=== PATIENT | female | born 1980 | race Caucasian/White ===

== ENCOUNTER 2017-09-29 22:56 | Observation (INO) | payer BC ==
[2017-09-29 23:22] LABS: #Basophils 0.1 thou/uL (0.0-0.2); #Eosinphils 0.2 thou/uL (0.0-0.7); #Lymphocytes 2.5 thou/uL (1.20-3.40); #Monocytes 1.1 thou/uL (0.11-0.59); #Neutrophils 9.9 thou/uL (1.40-6.50); %Basophils 0.7 % (0.0-1.0); %Eosinophils 1.7 % (0.0-10.0); %Lymphocytes 18.1 % (21.0-51.0); %Neutrophils 71.6 % (42.0-75.0); Hemoglobin 12.9 g/dL (12.0-16.0); Mean Corpuscular HGB CONC 34.2 g/dL (32.0-36.0); Mean Corpuscular Hemoglobin 33.1 pg (27.0-31.0); Mean Corpuscular Volume 96.7 fl (81.0-99.0); Mean Platelet Volume 7.3 fL (7.4-10.4); Platelet Count 266 thou/uL (130-400); RBC Distribution Width 11.7 % (11.5-14.5); White Blood Cell (WBC) Count 13.9 thou/uL (4.8-10.8)
[2017-09-29 23:27] LABS: Bilirubin Negative (Negative); Blood, Urine Negative (Negative); Clarity TURBID (Clear); Glucose, Urine (Dipstick) Negative (Negative); Leukocyte Negative (Negative); Nitrite Negative (Negative); Protein, Urine (Dipstick) Trace mg/dL (Neg-Trace); Specific Gravity, Urine 1.022 (1.002-1.036); pH, Urine 7.5 (5.0-9.0)
[2017-09-29 23:29] LABS: BHCG - Serum Negative (NEGATIVE); Pregs Control Background? CLEAR/WHITE (CLR/WHITE); Pregs Control Bar Appear? YES (CONTROL BAR)
[2017-09-29 23:41] LABS: ALT (SGPT) 57 U/L (8-55); AST (SGOT) 104 U/L (5-34); Albumin 4.2 g/dL (3.5-5.0); Alkaline Phosphatase 75 U/L (40-150); Anion Gap 13 mmol/L (10-20); BUN (Urea Nitrogen) 12 mg/dL (7.0-18.7); Bilirubin, Total 0.3 mg/dL (0.2-1.2); Calc. Creatinine Clearance 0 mL/min (70-130); Calcium 9.6 mg/dL (7.8-10.44); Carbon Dioxide 24 mmol/L (22-29); Chloride 104 mmol/L (98-107); Estimated GFR-MDRD 83; Glucose 135 mg/dL (70-105); Lipase 37 U/L (8-78); Potassium 3.5 mmol/L (3.5-5.1); Protein, Total 7.2 g/dL (6.0-8.3); Sodium 137 mmol/L (136-145)
[2017-09-30] MEDS ORDERED: Meropenem 1 GM in Sterile Water 20 ML SLOW IVP SCH (01:45)
[2017-09-30] MEDS ORDERED: Ketorolac Tromethamine 30 MG/ML VIAL ONE ×2 (02:03→08:40)
[2017-09-30] MEDS ORDERED: Ondansetron HCl/PF 4 MG/2 ML Vial ONE ×4 (02:15→15:35)
[2017-09-30] MEDS ORDERED: Morphine 5 MG/ML SYRINGE IVP PRN (02:55)
[2017-09-30] MEDS ORDERED: traMADol HCl 50 MG TAB PO PRN (02:55)
[2017-09-30] MEDS ORDERED: Dextrose 5% in Water 1,000 ML IV PRN (02:55)
[2017-09-30] MEDS ORDERED: Ondansetron HCl/PF 4 MG/2 ML Vial IVP PRN ×2 (02:55→09:52)
[2017-09-30] MEDS ORDERED: Sodium Chloride 0.9% 1,000 ML IV SCH (02:55)
[2017-09-30] MEDS ORDERED: Ondansetron ODT 4 MG TAB PO PRN (02:55)
[2017-09-30] MEDS ORDERED: Dextrose 50% Abboject 50 ML SYRINGE SLOW IVP PRN (02:55)
[2017-09-30] MEDS ORDERED: Acetaminophen 500 MG TAB PO SCH (03:00)
--- NOTE | 2017-09-30 04:26 | HP ---
DATE OF SERVICE: 09/30/2017 HISTORY OF PRESENT ILLNESS: Flaquita Luciano is a 37-year-old female who presented to [facility] with a chief complaint of epigastric and right upper quadrant pain. Per patient, she had dinner at approx imately 8:00 to 8:30 this evening, which consisted of hamburger, meat, and gravy. Approximately 30 m inutes later, patient had abrupt onset of epigastric and right upper quadrant pain associated with na usea. Patient tried taking Tums without relief. Pain began to intensify and after when she came to the emergency room. She was evaluated and found to have elevated liver enzymes and abdominal ultraso und revealed multiple gallstones. Upon my evaluation, the patient is still having 7/10 pain. ALLERGIES: None. HOME MEDICATIONS: None. PAST MEDICAL HISTORY: History of gestational diabetes. PAST SURGICAL HISTORY: No prior surgeries. SOCIAL HISTORY: Patient is G3, P3 lives at home with her . Works in the [employer], she endorses occasional alcohol use and is a current half pack per day smoker x20 years. Denies illi cit drug use. REVIEW OF SYSTEMS: Positive only for 1 week of loose stool. Otherwise, negative except as indicated in the HPI. FAMILY HISTORY: Maternal grandfather with diabetes and coronary artery disease. PHYSICAL EXAMINATION: VITAL SIGNS: Blood pressure 120/74, pulse 80, respirations 18, temperature 97.5, O2 sat 96% on room air. GENERAL: Well-developed female in mild distress/tearful secondary to pain. HEAD: Normocephalic, atraumatic. EYES: Pupils are PERRL. Extraocular movements are intact. NECK: Supple. Trachea is midline. Range of motion within normal limits for patient. PULMONARY: Normal work of breathing. Symmetric rise. LUNGS: Clear to auscultation bilaterally. CARDIOVASCULAR: Regular rate and rhythm. No obvious murmurs, rubs, or gallops. GI: Abdomen is flat, nondistended. Bowel sounds are positive. There is epigastric and right upper quadrant tenderness with positive Kaye's sign. There is no guarding or rigidity. No peritoneal si gns. BACK: Back exam is being within normal limits. MUSCULOSKELETAL: Moves all extremities x4. Pulses 2+ bilaterally. NEUROLOGIC: GCS of 15. No focal deficit noted. LABORATORY FINDINGS: WBC 13.9, hemoglobin 12.9, hematocrit 37.7, platelet count 266,000. Sodium 137 , potassium 3.5, chloride 104, carbon dioxide 24, BUN 12, creatinine 0.79, glucose 135, AST 104, ALT 57, lipase 37. Serum test is negative. Urinalysis is unremarkable. RADIOGRAPHIC FINDINGS. Abdominal ultrasound shows cholelithiasis, common bile duct measuring 0.53 ga llbladder wall measuring 0.26 with a positive Kaye's sign. ASSESSMENT: 1. Abdominal pain. 2. Acute cholecystitis. PLAN: Admit to surgical floor. Plans for laparoscopic cholecystectomy. Patient should be n.p.o. G entle IV fluid hydration. Pain management. Plan for admission, was discussed with the patient and karen reynolds at bedside. All questions were answered at the time of this dictation. Assessment and plan wa s discussed with Dr. Chris, who evaluate the patient later this morning, further plan to follow at th at time.
[2017-09-30 05:27] VITALS: BMI 24.8
--- NOTE | 2017-09-30 07:59 | ULT ---
PRELIMINARY REPORT/[facility]/EMERGENCY AFTER HOURS PROCEDURE: EXAM: US Abdomen Limited, Right Upper Quadrant CLINICAL HISTORY: 37 years old, female; Pain; Other: Epigastric pain x 3-4hrs, elevated lfts TECHNIQUE: Real-time ultrasound of the right upper quadrant with image documentation. COMPARISON: No relevant prior studies available. FINDINGS: Liver: Unremarkable. No mass. No intrahepatic bile duct dilation. Gallbladder: Wall echo shadow complex in keeping with extensive gallstones. No wall thickening or per icholecystic fluid. Positive sonographic Kaye's sign Common bile duct: Unremarkable as visualized. No stones. No dilation. Pancreas: Unremarkable as visualized. Right kidney:No stones. No solid mass. Question mild hydronephrosis. IMPRESSION: Extensive gallstones and positive sonographic Kaye's sign. Correlate for cholecystitis Mild right hydronephrosis Thank you for allowing us to participate in the care of your patient. Dictated and Authenticated by: Keanu Goodrich MD 09/30/2017 1:05 AM Central Time ([place] & [place]) FINAL REPORT RIGHT UPPER QUADRANT ULTRASOUND: Date: 09/30/17 FINDINGS/IMPRESSION: I agree with the preliminary report given by Dr. Keanu Goodrich of [facility]. POS: OFF
[2017-09-30] MEDS ORDERED: Acetaminophen 1,000 MG in Premix Bag 1 BAG IVPB SCH (08:00)
[2017-09-30] MEDS ORDERED: Scopolamine 1.5 mg/72 hour Patch TD SCH (08:00)
[2017-09-30] MEDS ORDERED: Ketorolac Tromethamine 30 MG/ML VIAL IVP SCH (08:00)
--- NOTE | 2017-09-30 08:09 | HP ---
HISTORY: Flaquita Luciano a 37-year-old female who presents with epigastric right upper quadrant pain, ba ck radiation, nausea. She was seen in the emergency room, liver function tests are normal. Pregnanc y test negative. The patient underwent ultrasound of gallbladder revealing gallstones. Liver functi on tests are normal. She had a prior episode a few years ago. She is 2, para 2. ALLERGIES: None. TOBACCO: One pack per day. ALCOHOL: None. MEDICATIONS: None routinely. PAST SURGICAL HISTORY: Noncontributory. REVIEW OF SYSTEMS: Ten point noncontributory. PHYSICAL EXAMINATION: VITAL SIGNS: Height 5 foot 6, 156 pounds, 24 BMI, 98.1, 74, 127/67. HEENT: Unremarkable. Sclerae is nonicteric. LUNGS: Clear to auscultation. CARDIAC: Regular rate and rhythm without murmur or gallop. ABDOMEN: Soft, tenderness in right upper quadrant with guarding. EXTREMITIES: Unremarkable. Without edema. SKIN: Nonjaundiced. LYMPH: Neck, axilla or groin without lymphadenopathy. LABORATORY DATA: White count 13, hemoglobin 12, sodium 137, creatinine 0.79, bilirubin 0.3, lipase n ormal, serum test negative. ASSESSMENT AND PLAN 1. Cholecystitis, cholelithiasis. Recommend laparoscopic video cholecystectomy. Risks of infection , bleeding, visceral and biliary injury explained, questions answered. Plan for laparoscopic cholecy stectomy today 2. Tobacco abuse.
[2017-09-30 08:17] VITALS: TEMP 98
[2017-09-30] MEDS ORDERED: Fentanyl 100 MCG/2 ML VIAL ONE ×2 (08:22→10:34)
[2017-09-30] MEDS ORDERED: Scopolamine 1.5 mg/72 hour Patch ONE (08:40)
[2017-09-30] MEDS ORDERED: Bupivacaine PF 0.5% 30 ML VIAL ONE (08:40)
[2017-09-30] MEDS ORDERED: Lidocaine 2% w/Epinephrine 1:200K 20 ML VIAL ONE (08:40)
[2017-09-30] MEDS ORDERED: Famotidine/PF 20 mg/2ml Vial SLOW IVP SCH (09:00)
[2017-09-30] MEDS ORDERED: Midazolam HCl 2 mg/2 ml Vial ONE (09:16)
[2017-09-30] MEDS ORDERED: Ibuprofen 600 MG TAB PO PRN (09:37)
[2017-09-30] MEDS ORDERED: Acetaminophen 500 MG TAB PO PRN (09:37)
[2017-09-30] MEDS ORDERED: HYDROmorphone 2 MG/ML VIAL SLOW IVP PRN (09:52)
[2017-09-30] MEDS ORDERED: Meperidine HCl/PF 25 MG/ML VIAL SLOW IVP PRN (09:52)
[2017-09-30] MEDS ORDERED: Promethazine HCl 25 MG/ML VIAL SLOW IVP PRN (09:52)
--- NOTE | 2017-09-30 12:29 | OP ---
DATE OF PROCEDURE: 09/30/2017 PREOPERATIVE DIAGNOSES: Chronic cholecystitis, cholelithiasis. POSTOPERATIVE DIAGNOSES: Chronic cholecystitis, cholelithiasis. PROCEDURE: Laparoscopic video cholecystectomy. SURGEON: Dr. Clifford Hernandez ANESTHESIA: General. Local 0.5% Marcaine, 30 mL, mixed with 1% Xylocaine with epinephrine, 30 mL, 3 0 mL mixture used. PROCEDURE IN DETAIL: The patient was taken to the operating room where under general anesthesia, abd omen was clipped of hair, prepared with ChloraPrep, draped in routine fashion. Local anesthetic infi ltrated into skin and subcutaneous tissue about each port site. Infraumbilical incision made and pne umoperitoneum to 15 mmHg obtained with the Veress needle, replacing it with a 5 port and video laparo scope inserted. Right subxiphoid incision made and 11 port placed. Right subcostal incision made mi d clavicular anterior axillary lines and 5 ports placed. Liver appeared to be normal. Gallbladder w as full of stones, outlet obstructed with gallstones. Cystic artery and duct dissected free. Critic al view obtained with pericholecystic dissection 2/3 cystic plate, cystic artery and duct doubly clip ped proximally, divided and gallbladder dissected free from the liver bed obtaining good hemostasis p rior to division of final peritoneal attachments. Gallbladder and contents multiple stones removed a nd submitted to Pathology. Good hemostasis ensured with cautery. Irrigant and pneumoperitoneum evac uated. All instruments removed and all skin incisions approximated with interrupted subdermal 4-0 Mo nocryl and DermaGlue applied. The patient tolerated the procedure well.
[2017-09-30] MEDS: traMADol HCl 50 MG TAB PO PRN ×2 (13:32→14:47)
[2017-09-30 14:54] VITALS: BP 120/75
--- NOTE | 2017-09-30 15:05 | DIS ---
DATE OF ADMISSION: 09/29/2017 DATE OF DISCHARGE: 09/30/2017 DISCHARGE DIAGNOSES: Acute cholecystitis, cholelithiasis, cystic duct obstruction with stones. POSTOPERATIVE DIAGNOSES: Acute cholecystitis, cholelithiasis, cystic duct obstruction with stones. PROCEDURE: Laparoscopic cholecystectomy. Day of discharge ultrasound evaluated in the emergency rylie m. DISCHARGE MEDICATIONS: Ultram #22 refills, otherwise taking Tylenol 1000 mg p.o. q.i.d. and Motrin 6 00 mg p.o. q.i.d. p.r.n. pain. DISCHARGE INSTRUCTIONS: Diet and activity as tolerated. No activity, lifting restrictions. Follow up in my office in 2-3 weeks. HISTORY: A 37-year-old female presents with biliary symptoms in the emergency room. Ultrasound docu mented this with normal LFTs, admitted, IV fluid hydration, underwent laparoscopic cholecystectomy an d discharged home with the above regimen and follow up in my office in 2-3 weeks.
[2017-09-30] MEDS ORDERED: Dexamethasone 20 MG/5 ML VIAL ONE (15:35)
[2017-09-30] MEDS ORDERED: Lidocaine 1% PF 5 ML VIAL ONE (15:35)
[2017-09-30] MEDS ORDERED: PROPOFOL 200 MG/20 ML VIAL ONE (15:35)
[2017-09-30] MEDS ORDERED: Glycopyrrolate 0.2 MG/ML 5 ML SYRINGE ONE (15:35)
== END 2017-09-30 15:10 | disposition home or self-care (01) ==
LOC: ERS 22:56 → 3SE 09-30 01:25
PROVIDERS: ADMIT Surgery; ATTEND Specialist
PROC: 0FT44ZZ Resection of Gallbladder, Percutaneous Endoscopic Approach (ICD-10-PCS; principal; 2017-09-30)
DX: K80.10 Calculus of gallbladder with chronic cholecystitis without obstruction (principal); F17.210 Nicotine dependence, cigarettes, uncomplicated; Z91.018 Allergy to other foods
CPT/HCPCS: 76705; 80053; 81003; 83690; 84703; 85025; 88304; 96361; 96374; 96375; 96376; 99406; A4216; G0378; J0131; J1100; J1885; J2001; J2185; J2250; J2405; J2704; J3010; S0020

== ENCOUNTER 2017-11-06 19:37 | Emergency (ER) | payer BC ==
[2017-11-06 20:20] LABS: Bilirubin Negative (Negative); Blood, Urine Trace (Negative); Clarity CLEAR (Clear); Glucose, Urine (Dipstick) Negative (Negative); Leukocyte Negative (Negative); Nitrite Negative (Negative); Protein, Urine (Dipstick) Negative (Neg-Trace); Specific Gravity, Urine 1.011 (1.002-1.036); pH, Urine 6.5 (5.0-9.0)
[2017-11-06 20:22] LABS: Bacteria/HPF None Seen HPF (None Seen); Hyaline Casts/LPF 0-3 HYALINE CAST LPF (0-3 Hyaline); Pathc Cast-AUWi Flag 0.13 (0-2.49); RBC/HPF 0-3 HPF (0-3); Squamous Epithelial 0-3 HPF (0-3); WBC/HPF None Seen HPF (0-3)
[2017-11-06 20:31] LABS: #Basophils 0.1 thou/uL (0.0-0.2); #Eosinphils 0.3 thou/uL (0.0-0.7); #Lymphocytes 3.9 thou/uL (1.20-3.40); #Monocytes 0.6 thou/uL (0.11-0.59); #Neutrophils 5.1 thou/uL (1.40-6.50); %Eosinophils 3.2 % (0.0-10.0); %Lymphocytes 38.7 % (21.0-51.0); %Monocytes 6.3 % (0.0-10.0); %Neutrophils 50.8 % (42.0-75.0); Hemoglobin 14.5 g/dL (12.0-16.0); Mean Corpuscular HGB CONC 33.4 g/dL (32.0-36.0); Mean Corpuscular Volume 95.9 fl (81.0-99.0); Mean Platelet Volume 7.5 fL (7.4-10.4); Platelet Count 254 thou/uL (130-400); RBC Distribution Width 11.8 % (11.5-14.5); Red Blood Cell (RBC) Count 4.53 mill/uL (4.20-5.40)
[2017-11-06 20:39] LABS: BHCG - Serum Negative (NEGATIVE); Pregs Control Background? CLEAR/WHITE (CLR/WHITE); Pregs Control Bar Appear? YES (CONTROL BAR)
[2017-11-06 20:52] LABS: ALT (SGPT) 14 U/L (8-55); AST (SGOT) 18 U/L (5-34); Albumin 4.8 g/dL (3.5-5.0); Alkaline Phosphatase 67 U/L (40-150); Anion Gap 16 mmol/L (10-20); BUN (Urea Nitrogen) 11 mg/dL (7.0-18.7); Bilirubin, Total 0.4 mg/dL (0.2-1.2); Calc. Creatinine Clearance 0 mL/min (70-130); Calcium 9.9 mg/dL (7.8-10.44); Carbon Dioxide 19 mmol/L (22-29); Chloride 105 mmol/L (98-107); Estimated GFR-MDRD 83; Globulin 3.4 g/dL (2.4-3.5); Glucose 114 mg/dL (70-105); Potassium 3.6 mmol/L (3.5-5.1); Protein, Total 8.2 g/dL (6.0-8.3); Sodium 136 mmol/L (136-145)
--- NOTE | 2017-11-06 23:47 | ULT ---
PELVIC ULTRASOUND: 11/06/17 Transabdominal and endovaginal ultrasound of pelvis performed. INDICATIONS: Vaginal bleeding. Pelvic pain. The uterus has a normal sonographic appearance. Endometrial stripe is within normal range measured at 5 to 7 mm. Both ovaries are identified and appear unremarkable. Color doppler with spectral analysis demonstrates blood flow to both ovaries. There is a small amount of cul-de-sac fluid. IMPRESSION: Small amount of cul-de-sac fluid may be physiologic. Pelvic ultrasound is otherwise unremarkable. POS: MISAEL
== END 2017-11-06 23:59 | disposition home or self-care (01) ==
LOC: ERS 19:37
DX: N92.5 Other specified irregular menstruation (principal); F17.210 Nicotine dependence, cigarettes, uncomplicated
CPT/HCPCS: 36415; 76856; 80053; 81003; 81015; 84703; 85025; 86850; 86900; 86901